=== PATIENT | female | born 1960 | race Caucasian/White ===

== ENCOUNTER 2020-07-11 08:57 | Observation (INO) ==
[2020-07-11] MEDS ORDERED: Naloxone 0.4 MG/ML INJ IVP PRN ×2 (12:33→22:35)
[2020-07-11] MEDS ORDERED: Ondansetron 4 MG/2 ML VIAL IVP PRN (12:33)
[2020-07-11] MEDS ORDERED: Acetaminophen 325 MG TABLET PO PRN (12:33)
[2020-07-11] MEDS ORDERED: Metoprolol XL (24 HR) Succ 50 MG TAB.ER.24H PO ONE (13:00)
[2020-07-11 13:25] LABS: Basophils # 0.1 K/mcL (0.0-0.2); Basophils % 0.7 %; Hematocrit 26.7 % (35.3-44.9); Hemoglobin 8.3 g/dL (11.5-15.4); Immature Granulocytes % 15.7 % (0-4); Lymphocytes # 0.7 K/mcL (0.6-4.6); Lymphocytes % 3.6 %; Mean Corpuscular HGB Conc 31.1 g/dL (31.6-35.5); Mean Corpuscular Hemoglobin 30.4 pg (28.0-33.3); Mean Corpuscular Volume 97.8 fL (83.0-100.0); Mean Platelet Volume 10.4 fL (9.4-12.4); Monocytes # 1.3 K/mcL (0.0-1.3); Monocytes % 6.3 %; Neutrophils # 14.7 K/mcL (1.6-8.9); Nucleated Red Blood Cells 6.2 /100 WBC (0); Platelet Count 179 K/mcL (140-400); Red Blood Count 2.73 M/mcL (3.82-4.97); Red Cell Distribution Width 16.4 % (11.5-14.5); Segmented Neutrophils % 73.7 %; White Blood Count 19.9 K/mcL (4.3-11.1)
[2020-07-11 13:37] LABS: INR 1.5; Prothrombin Time 17.5 Seconds (9.4-12.1)
[2020-07-11 13:39] LABS: Platelet Estimate Slight Decrease (Normal)
[2020-07-11 13:46] LABS: BUN/Creatinine Ratio 33 (6-26); Blood Urea Nitrogen 15 mg/dL (8-23); Calcium 7.8 mg/dL (8.6-10.3); Carbon Dioxide 24 mEq/L (23-29); Chloride 104 mEq/L (98-107); Glucose 212 mg/dL (70-105); Osmolality,Calculated 287 (280-300); Potassium 4.2 mEq/L (3.5-5.1); Sodium 135 mEq/L (136-145); eGFR For African Americans > 60 (> 60); eGFR For Non-African Americans > 60 (> 60)
[2020-07-11] MEDS ORDERED: *HR* Dextrose 50 % in Water (Vial) 50 ML VIAL IVP PRN (17:18)
[2020-07-11] MEDS ORDERED: D5% in Water 1,000 ML IVC PRN (17:18)
[2020-07-11] MEDS ORDERED: Dextrose Gel 15 GM/37.5 ML TUBE PO PRN ×2 (17:18)
[2020-07-11] MEDS ORDERED: *HR* OxyCODONE Immed Rel 5 MG TABLET PO PRN (17:20)
[2020-07-11] MEDS: Apixaban 5 MG TABLET PO SCH (20:04)
[2020-07-11] MEDS: Magnesium Oxide 400 MG TABLET PO SCH (20:04)
[2020-07-11] MEDS ORDERED: Insulin LISPRO 300 UNITS/3 ML VIAL SQ SCH (21:00)
[2020-07-12 05:19] LABS: Hematocrit 24.8 % (35.3-44.9); Hemoglobin 7.8 g/dL (11.5-15.4); Mean Corpuscular HGB Conc 31.5 g/dL (31.6-35.5); Mean Corpuscular Hemoglobin 30.2 pg (28.0-33.3); Mean Corpuscular Volume 96.1 fL (83.0-100.0); Mean Platelet Volume 10.6 fL (9.4-12.4); Nucleated Red Blood Cells 5.5 /100 WBC (0); Platelet Count 145 K/mcL (140-400); Red Blood Count 2.58 M/mcL (3.82-4.97); Red Cell Distribution Width 16.1 % (11.5-14.5); White Blood Count 15.7 K/mcL (4.3-11.1)
[2020-07-12 05:26] LABS: BUN/Creatinine Ratio 37 (6-26); Blood Urea Nitrogen 16 mg/dL (8-23); Calcium 8.1 mg/dL (8.6-10.3); Carbon Dioxide 24 mEq/L (23-29); Chloride 103 mEq/L (98-107); Glucose 156 mg/dL (70-105); Magnesium 1.2 mg/dL (1.6-2.6); Osmolality,Calculated 284 (280-300); Sodium 135 mEq/L (136-145); eGFR For African Americans > 60 (> 60); eGFR For Non-African Americans > 60 (> 60)
[2020-07-12 07:00] LABS: Estimated Average Glucose 220 mg/dl
[2020-07-12 07:08] LABS: Neutrophils # 12.6 K/mcL (1.6-8.9); Platelet Estimate Normal (Normal)
[2020-07-12 07:16] VITALS: BP 148/89
[2020-07-12] MEDS ORDERED: Perflutren Lipid Microsphere 1.3 ML in 0.9 % Sodium Chloride 8.7 ML IVP PRN (07:26)
[2020-07-12] MEDS ORDERED: Insulin LISPRO 300 UNITS/3 ML VIAL SQ SCH (07:30)
[2020-07-12] MEDS: Magnesium Oxide 400 MG TABLET PO SCH (07:52)
[2020-07-12] MEDS: Apixaban 5 MG TABLET PO SCH (07:53)
[2020-07-12 08:39] LABS: Troponin I 0.04 ng/mL (< 0.04)
[2020-07-12] MEDS ORDERED: lisinopriL 20 MG TABLET PO SCH (09:00)
[2020-07-12] MEDS ORDERED: Metoprolol XL (24 HR) Succ 50 MG TAB.ER.24H PO SCH ×2 (09:00)
[2020-07-12] MEDS ORDERED: cefTRIAXone 1,000 MG in 0.9 % Sodium Chloride Mini Bag 100 ML IVPB SCH (09:00)
[2020-07-12] MEDS ORDERED: allopurinoL 100 MG TABLET PO SCH (09:00)
[2020-07-12] MEDS ORDERED: amLODIPine 5 MG TABLET PO SCH (09:00)
[2020-07-12] MEDS ORDERED: FLU Vac QV 20-21 (6Month+)/PF 0.5 ML SYRINGE IM ONE (09:01)
== END 2020-07-12 10:26 | disposition home or self-care (01) ==
LOC: CDU → 2NNU 16:31
PROVIDERS: ADMIT Pharmacist; ATTEND Pharmacist